=== PATIENT | male | born 1950 | race Caucasian/White ===

== ENCOUNTER 2017-08-31 07:41 | Day surgery (SDC) | payer OTHER ==
[2017-08-31] MEDS ORDERED: BENZOCAINE UNIT DOSE SPRAY HURRICAINE MM ONE (07:42)
[2017-08-31] MEDS ORDERED: ATROPINE SULFATE 1 MG/10 ML SYR IVP ONE (07:42)
[2017-08-31] MEDS ORDERED: MIDAZOLAM 2 MG/2 ML VIAL IVP ONE (07:42)
[2017-08-31] MEDS ORDERED: NS 500 ML IV ONE (07:42)
[2017-08-31] MEDS ORDERED: fentaNYL 100 MCG/2 ML INJ IVP ONE (07:42)
--- NOTE | 2017-08-31 08:01 | CPEKG ---
Heart Rate: 104 RR Interval: 577 QRSD Interval: 118 QT Interval: 388 QTC Interval: 511 QRS [place]: 35 T Wave Johnston: 113 EKG Severity - ABNORMAL ECG - EKG Impression: ATRIAL FIBRILLATION, V-RATE 83-121 EKG Impression: NONSPECIFIC INTRAVENTRICULAR CONDUCTION DELAY EKG Impression: LEFT VENTRICULAR HYPERTROPHY Electronically Signed By: Elias Villa 03-Sep-2017 13:55:42
--- NOTE | 2017-08-31 08:17 | PDANEPAE ---
ANE Past Medical History - Pulmonary History Hx Sleep Apnea: Yes ANE Review of Systems Review of Systems: ANE Patient History - Allergies Allergies/Adverse Reactions: No Known Allergies Allergy (Verified 07/19/13 08:01) - Home Medications Home Medications: Avapro 150 mg PO DAILY 05/12/16 [Last Taken 05/11/16 13:00] Eliquis 5 mg PO BID 05/12/16 [Last Taken Unknown] Nebivolol HCl [Bystolic] 10 mg PO DAILY 05/12/16 [Last Taken 05/11/16 12:00] - Smoking Hx Smoking Status: Former smoker ANE Labs/Vital Signs - Vital Signs Height: 173 cm Weight: 93 kg ANE Physical Exam - Airway Neck exam: increased neck circumference Mallampati Score: Class 3 Mouth exam: dentures - Pulmonary Pulmonary: reduced air movement - Cardiovascular Cardiovascular: irregularly irregular - ASA Status ASA Status: III ANE Anesthesia Plan Total IV Anesthesia: Yes
[2017-08-31 08:32] LABS: INR 1.2 (0.83-1.16); PROTIME(PATIENT) 15.2 SEC (12.0-15.0)
[2017-08-31 08:33] LABS: APTT 33.5 SEC (23.0-38.0)
[2017-08-31] MEDS ORDERED: PROPOFOL/EMULSION 500 MG/50 ML BOTTLE IV ONE (08:33)
[2017-08-31] MEDS ORDERED: LIDOCAINE 1% 5 ML SDV ONE (08:33)
[2017-08-31 08:42] LABS: ANION GAP 11 mEq/L (8-16); CALCIUM 9.2 mg/dL (8.5-10.4); CARBON DIOXIDE 23 mEq/l (22-31); CHLORIDE 103 mEq/L (97-110); CREATININE 0.8 mg/dL (0.7-1.3); GLOMERULAR FILTRATION RATE > 60; GLUCOSE 164 mg/dL (70-100); MAGNESIUM 1.9 mg/dL (1.6-2.3); POTASSIUM 4.7 mEq/L (3.5-5.2); SODIUM 137 mEq/L (134-144)
--- NOTE | 2017-08-31 08:59 | PDGENHP ---
History & Physical Chief Complaint: AF and CMP History of Present Illness: 67 yo M with AF and past attempt at DAVID guided DCCV x 2, but concern about DREW thrombus. Also moderate and CMP with LVEF 35%. Has been anticoagulated with Eliquis and now presents for elective DAVID guided DCCV. Pertinent Past, Social, Family History: reviewed from outpatient chart Relevant Physical Exam: NAD. Irreg, irreg. II/ JOHNNY base. Lungs CTAB Cardiorespiratory Assessment: stable
[2017-08-31] MEDS ORDERED: PERFLUTREN LIPID MICROSPHERES 1.1 MG/ML VIAL IV ONE (09:00)
--- NOTE | 2017-08-31 09:49 | PDTEE1 ---
DAVID Cardioversion Procedure Procedure: electrical cardioversion, transesophageal echo Indications: atrial fibrillation, cardiomyopathy Consent: signed and in chart Anticoagulation: eliquis Procedural Details: Pads were placed in anterior-posterior position. DAVID probe was advanced and standard images obtained. There is no evidence of left atrial or left atrial appendage thrombus. Sedation provided by Dr. Carcamo. Glidescope used for improved visualization. Definity used to clarify that there was no thrombus in the DREW Synchronized cardioversion attempt #1: 200J Results: normal sinus rhythm Conclusions: successful DAVID cardioversion
--- NOTE | 2017-08-31 09:57 | CPEKG ---
Heart Rate: 60 RR Interval: 1000 P-R Interval: 172 QRSD Interval: 114 QT Interval: 436 QTC Interval: 436 P [place]: 54 QRS [place]: 34 T Wave [place]: 100 EKG Severity - ABNORMAL ECG - EKG Impression: SINUS RHYTHM EKG Impression: NONSPECIFIC INTRAVENTRICULAR CONDUCTION DELAY EKG Impression: PROBABLE LVH WITH SECONDARY REPOL ABNRM EKG Impression: SINUS RHYTHM HAS REPLACED ATRIAL FIBRILLATION NOTED ON PRIOR ECG Electronically Signed By: Elais Villa 03-Sep-2017 13:56:06
--- NOTE | 2017-08-31 13:37 | ECHO ---
[email or web address] [place] [id number] Main: [phone] Fax: Transesophageal Echocardiography Name: ASHLEE LYNN MR#: [id number] Study Date: 08/31/2017 Study Time: 08:41 AM Date of : 1950 Age: 67 year(s) Height: ( ) Weight: ( ) BSA: Gender: Male Examination: DAVID Indication: Atrial Fibrillation Image Quality: Contrast: Requested by: Padmini Harden Heart Rate: Rhythm: BP: / Procedure Staff Lime Mixer: Reading Physician: Padmini Harden Requesting Provider: DAVID Exam Details Conclusions: Moderately reduced systolic LV function. The ejection fraction is visually estimated to be 30 %. An agitated saline study was performed and was negative for intracardiac shunting. Spontaneous contrast in the left atrium. No thrombus in the left atrial appendage confirmed by using Definity.. Moderate mitral valve regurgitation is present. The aortic valve is tri-leaflet. Mild to moderate aortic valve regurgitation. Moderate calcific aortic valve stenosis. RICHARD based on planimetry is 1 cm squared Mild to moderate tricuspid valve regurgitation. The pulmonary artery pressure is normal. Proceeded with DCCV Measurements: Chambers Valvular Assessment AV/MV Valvular Assessment TV/PV Normal Normal Normal Name Value Range Name Value Range Name Value Range Visual EF: 30 % TR Vmax: 2.62 mm/s ( - ) TR PGmax: 27 mmHg ( - ) syst. PAP: 37 mmHg ( - ) Additional Measurements: Valvular Assessment TV/PV Patient: ASHLEE LYNN Study Date: 08/31/2017 Page 1 of 2 08:41 AM Name Value CVP (est.): 10 mmHg Findings: Left Ventricle: Moderately reduced systolic LV function. The ejection fraction is visually estimated to be 30 %. Left Atrium: An agitated saline study was performed and was negative for intracardiac shunting. Spontaneous contrast in the left atrium. No thrombus in the left atrial appendage confirmed by using Definity.. Left Atrial Appendage: Spontaneous contrast is present in the left atrial appendage. Mitral Valve: Moderate mitral valve regurgitation is present. Aortic Valve: The aortic valve is tri-leaflet. Mild to moderate aortic valve regurgitation. Moderate calcific aortic valve stenosis. Tricuspid Valve: Mild to moderate tricuspid valve regurgitation. The pulmonary artery pressure is normal. l1n (No Signature Object) Patient: ASHLEE LYNN Study Date: 08/31/2017 Page 2 of 2 08:41 AM [id number]
== END 2017-08-31 11:09 | disposition home or self-care (01) ==
LOC: FCATH 07:41
PROVIDERS: ATTEND Internal Medicine Cardiovascular Disease
DX: I48.91 Unspecified atrial fibrillation (principal); I42.9 Cardiomyopathy, unspecified; G47.30 Sleep apnea, unspecified
CPT/HCPCS: 92960; 93005; C8927; J0461; J2704; J3010; Q9957

== ENCOUNTER 2017-10-13 08:22 | Outpatient (CLI) | payer OTHER ==
[2017-10-13] MEDS ORDERED: DOBUTamine/DEXTROSE 250 ML IV ONE (09:00)
--- NOTE | 2017-10-13 10:49 | PDHPUP ---
History & Physical Update H&P update statement: This history and physical update is based on an assessment of the patient which was completed after admission or registration (within 24 hours), but prior to the surgery/procedure. H&P update: H&P reviewed & patient examined, no change in patient's condition since H&P completed
--- NOTE | 2017-10-13 14:40 | ECHO ---
[email or web address] [place] [id number] Main: [phone] Fax: Stress Echocardiogram Name: ASHLEE LYNN MR#: [id number] Study Date: 10/13/2017 Study Time: 09:51 AM Date of : 1950 Age: 67 year(s) Height: 172.7 cm (68 in.) Weight: 95.26 kg (210 lb.) BSA: 2.09 m2 Gender: Male Examination: DSE Indication: Eval aortic stenosis/EF during dobutamine infusion Image Quality: Contrast: Requested by: Padmini Harden Heart Rate: Rhythm: BP: / Procedure Staff Knitting Machine Operator: Shruti Abarca Physician: Padmini Harden Requesting Provider: Enmanuel Whitney Conclusions: Dobutamine stress echo done to assess for low flow in a patient with cardiomyopathy. At rest the mean transvalvular gradient was 28 mmHg and the calculated RICHARD was 0.77cm2. LVEF 30%. At 20 mcg /kg/minute of dobutamine mean gradient increased to 46 mmHg; calculated RICHARD 0.56 cm2. LVEF improved slightly to 35-50%. These findings are consistent with LV contractile reserve and true severe . Findings: Stress Echo Findings: Stress Echo Impression: Resting AV gradients - AV max PG is 42mmHG. AV mean PG is 28mmHG AV gradients 20MCG - AV max PG is 67mmHG. AV mean PG is 46mmHG. Mitral Valve: Tricuspid Valve: (No Signature Object) Patient: ASHLEE LYNN Study Date: 10/13/2017 Page 1 of 1 09:51 AM [id number]
== END 2017-10-13 12:22 | disposition home or self-care (01) ==
LOC: FCATH 08:22
PROVIDERS: ATTEND Internal Medicine Cardiovascular Disease
DX: I35.0 Nonrheumatic aortic (valve) stenosis (principal); I48.91 Unspecified atrial fibrillation; I10 Essential (primary) hypertension; Z79.01 Long term (current) use of anticoagulants; Z87.891 Personal history of nicotine dependence
CPT/HCPCS: J1250

== ENCOUNTER 2017-11-25 09:58 | Inpatient (IN) | payer MEDICARE, OTHER ==
[2017-11-25] MEDS ORDERED: DIAZEPAM 5 MG TAB PO ONE (10:04)
[2017-11-25] MEDS ORDERED: NS 1,000 ML IV ONE (10:04)
[2017-11-25] MEDS ORDERED: ASPIRIN EC 325 MG TAB PO ONE (10:04)
[2017-11-25] MEDS ORDERED: diphenhydrAMINE 25 MG CAP PO ONE ×2 (10:04→10:40)
[2017-11-25] MEDS ORDERED: FAMOTIDINE 20 MG TAB PO ONE (10:04)
[2017-11-25] MEDS ORDERED: DIAZEPAM 5 MG TAB ONE (10:40)
[2017-11-25] MEDS ORDERED: FAMOTIDINE 20 MG TAB ONE (10:40)
[2017-11-25 10:52] LABS: PLATELET COUNT 242 10^3/uL (150-400)
[2017-11-25 11:03] LABS: INR 1.07 (0.83-1.16); PROTIME(PATIENT) 14.1 SEC (12.0-15.0)
[2017-11-25] MEDS ORDERED: LIDOCAINE 1% 300 MG/30 ML SDV ONE (12:51)
[2017-11-25] MEDS ORDERED: fentaNYL 100 MCG/2 ML INJ ONE (12:52)
[2017-11-25] MEDS ORDERED: MIDAZOLAM 2 MG/2 ML VIAL ONE ×2 (12:52→13:37)
[2017-11-25] MEDS ORDERED: IOPAMIDOL (ISOVUE-370) 150 ML BTL IV ONE (12:52)
--- NOTE | 2017-11-25 12:57 | PDPROPOC ---
Sedation Plan of Care Sedation Plan of Care: vital signs stable, mental status noted, patient educated of risks, benefits, alternatives, patient can tolerate sedation ASA Classification: ASA 3 Planned drugs: fentanyl, midazolam, other (etomidate) Mallampati Score: Class 3 Mallampati Reference Image: Patient passed 3-3-2 rule?: Yes
--- NOTE | 2017-11-25 12:58 | PDHPUP ---
History & Physical Update H&P update statement: This history and physical update is based on an assessment of the patient which was completed after admission or registration (within 24 hours), but prior to the surgery/procedure.
[2017-11-25] MEDS ORDERED: ETOMIDATE 40 MG/20 ML INJ ONE (13:59)
--- NOTE | 2017-11-25 14:03 | PDGENHP ---
History and Physical - Chief Complaint , MR, TR, LSPAF - History of Present Illness 67M admitted in advance of open heart surgery for risk stratification. Pt was referred to CT surgery last September by Dr. Kwaku Norman for consideration of Hartley-Maze 4 for LSPAF, and multi-valvular repair for moderate /MR/TR. Since last seen, pt states he continues to have SOB on exertion and is frequently aware of his irregular heart rhythm. He denies CP or LE edema. History Information - Allergies/Home Medication List Allergies/Adverse Reactions: No Known Allergies Allergy (Verified 11/02/17 12:14) Home Medications: Apixaban [Eliquis] 5 mg PO BID #0 05/12/16 [Last Taken 11/21/17] Irbesartan [Avapro 150 mg (*)] 150 mg PO DAILY #0 05/12/16 [Last Taken 11/24/17] Nebivolol HCl [Bystolic 5 mg (*)] 10 mg PO DAILY 11/18/17 [Last Taken 11/24/17] I have personally reviewed and updated: medical history, social history, surgical history - Past Medical History CHF, diabetes type 2, hypertension Additional medical history: as per HPI, NICM - Surgical History Reports: appendectomy, hernia repair (BL) Additional surgical history: cataract surgery - Social History Smoking Status: Former smoker Alcohol Use: Sober Drug Use: Cocaine (former) Review of Systems Review of Systems: ROS: 10pt was reviewed & negative except for what was stated in HPI & below Physical Exam Physical Exam: Constitutional: no apparent distress, appears nourished, not in pain Eyes: anicteric sclera Ears, Nose, Mouth, Throat: moist mucous membranes, hearing normal Cardiovascular: irregularly irregular Peripheral Pulses: 2+: dorsalis-pedis (R) (doppler as per RN), dorsalis-pedis (L ) (doppler as per RN) Respiratory: no respiratory distress Gastrointestinal: soft, non-tender abdomen Genitourinary: no bladder fullness Skin: warm, normal color Musculoskeletal: full muscle strength Neurologic: AAOx3, sensation intact bilaterally Psychiatric: interacting appropriately, not anxious, not encephalopathic, thought process linear Lab Data & Imaging Review 11/25/17 10:04 11/25/17 10:36 WBC 7.68 10^3/uL (3.80-9.50) 11/25/17 10:04 RBC 4.97 10^6/uL (4.40-6.38) 11/25/17 10:04 Hgb 15.5 g/dL (13.7-17.5) 11/25/17 10:04 Hct 44.0 % (40.0-51.0) 11/25/17 10:04 MCV 88.5 fL (81.5-99.8) 11/25/17 10:04 MCH 31.2 pg (27.9-34.1) 11/25/17 10:04 MCHC 35.2 g/dL (32.4-36.7) 11/25/17 10:04 RDW 12.9 % (11.5-15.2) 11/25/17 10:04 Plt Count 242 10^3/uL (150-400) 11/25/17 10:04 MPV 9.6 fL (8.7-11.7) 11/25/17 10:04 Neut % (Auto) 67.8 % (39.3-74.2) 11/25/17 10:04 Lymph % (Auto) 21.9 % (15.0-45.0) 11/25/17 10:04 Smyth % (Auto) 8.5 % (4.5-13.0) 11/25/17 10:04 Eos % (Auto) 0.7 % (0.6-7.6) 11/25/17 10:04 Baso % (Auto) 0.7 % (0.3-1.7) 11/25/17 10:04 Nucleat RBC Rel Count 0.0 % (0.0-0.2) 11/25/17 10:04 Absolute Neuts (auto) 5.22 10^3/uL (1.70-6.50) 11/25/17 10:04 Absolute Lymphs (auto) 1.68 10^3/uL (1.00-3.00) 11/25/17 10:04 Absolute Monos (auto) 0.65 10^3/uL (0.30-0.80) 11/25/17 10:04 Absolute Eos (auto) 0.05 10^3/uL (0.03-0.40) 11/25/17 10:04 Absolute Basos (auto) 0.05 10^3/uL (0.02-0.10) 11/25/17 10:04 Absolute Nucleated RBC 0.00 10^3/uL (0-0.01) 11/25/17 10:04 Immature Gran % 0.4 % (0.0-1.1) 11/25/17 10:04 Immature Gran # 0.03 10^3/uL (0.00-0.10) 11/25/17 10:04 PT 14.1 SEC (12.0-15.0) 11/25/17 10:36 INR 1.07 (0.83-1.16) 11/25/17 10:36 APTT 29.2 SEC (23.0-38.0) 11/25/17 10:36 Sodium 143 mEq/L (135-145) 11/25/17 10:36 Potassium 4.4 mEq/L (3.5-5.2) 11/25/17 10:36 Chloride 110 mEq/L (97-110) 11/25/17 10:36 Carbon Dioxide 18 mEq/l (22-31) L 11/25/17 10:36 Anion Gap 15 mEq/L (8-16) 11/25/17 10:36 BUN 17 mg/dL (7-23) 11/25/17 10:36 Creatinine 0.8 mg/dL (0.7-1.3) 11/25/17 10:36 Estimated GFR > 60 11/25/17 10:36 Glucose 141 mg/dL (70-100) H 11/25/17 10:36 Hemoglobin A1c 7.4 % (4.0-6.0) H 11/25/17 10:36 Estim Average Glucose 166 mg/dL (68-126) H 11/25/17 10:36 Calcium 9.0 mg/dL (8.5-10.4) 11/25/17 10:36 Magnesium 1.8 mg/dL (1.6-2.3) 11/25/17 10:36 Triglycerides 81 mg/dL (40-150) 11/25/17 10:36 Cholesterol 159 mg/dL (140-220) 11/25/17 10:36 Cholesterol Risk Factr 1.2 (0.2-1.0) H 11/25/17 10:36 LDL Cholesterol, Calc 112 mg/dL (80-100) H 11/25/17 10:36 LDL Risk Factor 1.0 (0.2-1.0) 11/25/17 10:36 VLDL Cholesterol 16 mg/dL (8-25) 11/25/17 10:36 Non-HDL Cholesterol 128 mg/dL (90-129) 11/25/17 10:36 HDL Cholesterol 31 mg/dL (40-65) L 11/25/17 10:36 LDL/HDL Ratio 3.61 RATIO (1.00-3.64) 11/25/17 10:36 Cholesterol/HDL Ratio 5.13 RATIO (1.00-4.97) H 11/25/17 10:36 Patient ABO/Rh O NEGATIVE 11/25/17 10:36 Antibody Screen NEGATIVE 11/25/17 10:36 Imaging Review: 06/29/17 TTE: - LV with moderate dilationm, RV with mild dilation - EF 30% - Mod , mod MR, mild TR 08/31/17 DAVID: - EF 30% - Mod MR//TR 10/13/17 Dobutamine stress ECHO: - Mean gradient across aortic valve increased to 46 mmHg from 28 mmHg, aortic valve area decreased to .56 cm2 from .77 cm2 while EF increased to 50% from 35% . 11/25/16 LHC/RHX: - No significant flow limiting obstructions - Normal PA pressures Visualized and Interpreted EKG results: Yes EKG Interpretation: Positive for: LVH, normal sinsus rhythm Assessment & Plan Assessment: 67M with LSPAF and MR//TR Plan: Hartley-Maze 4 and multivalvular surgery on 11/26/[address] Whitney. Pre-op orders entered. Consents to be obtained in morning.
--- NOTE | 2017-11-25 14:04 | PDDXCAT ---
Diagnostic Cath Note - . Date: 11/25/17 Oil Field Tester: Karen Indication: other (Diagnostic cath for planned valve surgery tomorrow. ) - Procedure Access: right groin Procedure: left heart catheterization, right heart catheterization - Materials Left Heart Cath size: 6F Left Heart Cath materials: standard multipack (JL4, JR4, pigtail) Right Heart Cath size: 7F Right Heart Cath materials: PWP catheter - Findings-Left Heart Catheterization LM: The LM is 4mm in size. It trifurcates in an LAD, ramus and circumflex system. ABDI III flow. There was no siginifcant flow limiting obstruction seen. LAD: It is 3mm in size. ABDI III flow. There was no significant flow limiting obstruction seen. LCX: It is 2.5mm in size. RCA: The RCA is dominant and gives rise to the PDA. It is 3mm in size. There was no significant flow limiting obstruction seen. - Findings-Right Heart Catheterization RA: Pressure: 14/14 RV: Pressure: 37/9 End diastolic pressure 13mmHg. PA: Pressure: 37/23. Saturation: 73%. PAOP: PCW pressure: 19mmHg AO: Saturation: 95.1% CO: 5.5 L/min CI: 2.6 L/min/m2 Complications: None. Estimated blood loss: <50ml Closure method: manual pressure Assessment: There is no significant flow limiting obstruction identified. The patient's pulmonary pressures are surprisingly low with a systolic pulmonary pressure of 37mmHg. The patient has mildly elevated filling pressures with pulmonary capillary wedge pressure of 19mmHg. Plan: The patient is prepped for valve surgery tomorrow. He will proceed with the elected surgery. There was no significant flow limiting disease identified. Intervention: None.
[2017-11-25] MEDS ORDERED: ATROPINE SULFATE 1 MG/10 ML SYR ONE (14:45)
[2017-11-25] MEDS ORDERED: ATROPINE SULFATE 1 MG/10 ML SYR IVP PRN (14:53)
[2017-11-25] MEDS ORDERED: HYDROCODONE/APAP 5/325 TAB PO PRN (14:53)
[2017-11-25] MEDS ORDERED: ONDANSETRON 4 MG/2 ML VIAL IVP PRN (14:53)
[2017-11-25] MEDS ORDERED: OXYCODONE/APAP 5/325 TAB PO PRN (14:53)
[2017-11-25] MEDS ORDERED: NITROGLYCERIN 0.4 MG BTL SL PRN (14:53)
--- NOTE | 2017-11-25 15:23 | CPEKG ---
Heart Rate: 100 RR Interval: 600 QRSD Interval: 122 QT Interval: 368 QTC Interval: 475 QRS [place]: 37 T Wave [place]: 83 EKG Severity - ABNORMAL ECG - EKG Impression: ATRIAL FIBRILLATION, V-RATE 74-138 EKG Impression: VENTRICULAR PREMATURE COMPLEX EKG Impression: IVCD EKG Impression: LVH VOLTAGE Electronically Signed By: Wellington Lyon 25-Nov-2017 16:21:17
[2017-11-25] MEDS ORDERED: CHLORHEXIDINE GLUC HIBICLENS 118 ML BTL TP SCH (21:00)
[2017-11-26] MEDS ORDERED: niCARdipine/NACL 200 ML IV SCH (06:00)
[2017-11-26] MEDS ORDERED: MUPIROCIN 2% 22 GM OINT NS ONE (06:00)
[2017-11-26] MEDS ORDERED: INSULIN REGULAR HUMAN 100 UNIT in NS 100 ML IV ONE (06:00)
[2017-11-26] MEDS ORDERED: MANNITOL 25% 12.5 GM/50 ML VIAL IVP ONE (06:00)
[2017-11-26] MEDS ORDERED: CITRATE DEXTROSE SOLN 500 ML BAG MISC ONE (06:00)
[2017-11-26] MEDS ORDERED: NOREPINEPHRINE BITARTRATE 16 MG in NS 250 ML IV ONE (06:00)
[2017-11-26] MEDS ORDERED: PHENYLEPHRINE HCL 50 MG in NS 250 ML IV ONE (06:00)
[2017-11-26] MEDS ORDERED: SODIUM BICARBONATE 20 MEQ, LIDOCAINE 1% 10 ML in NORMOSOL-R 1,000 ML MISC ONE (06:00)
[2017-11-26] MEDS ORDERED: TRANEXAMIC ACID 1,000 MG in NS 100 ML IV ONE (06:00)
[2017-11-26] MEDS ORDERED: ceFAZolin 2 GM/SWFI 2 GM/20 ML SYR IVP ONE (06:00)
[2017-11-26] MEDS ORDERED: CALCIUM CHLORIDE 1 GM/10 ML INJ ONE (06:22)
[2017-11-26] MEDS ORDERED: ALBUMIN 5% 250 ML BOTTLE IV ONE (06:22)
[2017-11-26] MEDS ORDERED: PROTAMINE SULFATE 50 MG/5 ML VIAL IVP ONE (06:22)
[2017-11-26] MEDS ORDERED: MILRINONE/DEXTROSE/100 ML BAG IV ONE (06:22)
[2017-11-26] MEDS ORDERED: DOPamine/DEXTROSE/250 ML BAG IV ONE (06:23)
[2017-11-26] MEDS ORDERED: CITRATE DEXTROSE SOLN 500 ML BAG ONE (06:23)
[2017-11-26] MEDS ORDERED: NA BICARBONATE 50 MEQ/50 ML VIAL ONE (06:23)
[2017-11-26] MEDS ORDERED: ADENOSINE 6 MG/2 ML VIAL ONE (06:23)
[2017-11-26] MEDS ORDERED: niCARdipine/NACL/200 ML BAG IV ONE (06:23)
[2017-11-26] MEDS ORDERED: HEPARIN 10,000 UNIT/10 ML MDV (1,000 UNIT/ML) ONE (06:23)
[2017-11-26] MEDS ORDERED: AMIODARONE HCL 150 MG/3 ML VIAL ONE (06:23)
[2017-11-26] MEDS ORDERED: LIDOCAINE 2% 100 MG/5 ML SYR ONE (06:23)
[2017-11-26] MEDS ORDERED: MAGNESIUM SULFATE 1 GM/2 ML VIAL ONE (06:23)
[2017-11-26] MEDS ORDERED: ceFAZolin 1 GM VIAL ONE (06:24)
[2017-11-26] MEDS ORDERED: methylPREDNISolone SOD SUCC 1 GM/8 ML VIAL ONE (06:24)
[2017-11-26] MEDS ORDERED: MIDAZOLAM 2 MG/2 ML VIAL IVP ONE (08:01)
--- NOTE | 2017-11-26 08:01 | PDANEPAE ---
ANE History of Present Illness 67 yo for avr/mvr/maze ef 30%, AI, , MR afib tabitha ANE Past Medical History - Cardiovascular History Hx Hypertension: Yes Hx Arrhythmias: Yes Hx Chest Pain: No Hx Coronary Artery / Peripheral Vascular Disease: Yes Hx CHF / Valvular Disease: Yes Hx Palpitations: Yes Cardiovascular History Comment: tired,SOB - Pulmonary History Hx COPD: Yes Hx Asthma/Reactive Airway Disease: No Hx Recent Upper Respiratory Infection: No Hx Oxygen in Use at Home: No Hx Sleep Apnea: Yes Sleep Apnea Screening Result - Last Documented: Positive - Neurologic History Hx Cerebrovascular Accident: No Hx Seizures: No Hx Dementia: No - Endocrine History Hx Diabetes: No - Renal History Hx Renal Disorders: No - Liver History Hx Hepatic Disorders: No - Neurological & Psychiatric Hx Hx Neurological and Psychiatric Disorders: No - Cancer History Hx Cancer: No - Congenital Disorder History Hx Congenital Disorders: Yes Congenital History Comment: high blood pressure - GI History Hx Gastrointestinal Disorders: Yes Gastrointestinal History Comment: takes fiber daily. has hemmaroids - Other Health History Other Health History: redened area to right ankle. cataract surgery both eyes - Chronic Pain History Chronic Pain: No - Surgical History Prior Surgeries: heart cath. cardioversion x3 ANE Review of Systems Review of Systems: - Exercise capacity METS (RN): 3 METS ANE Patient History - Allergies Allergies/Adverse Reactions: No Known Allergies Allergy (Verified 11/02/17 12:14) - Home Medications Home medications: home medication list seen and reviewed Home Medications: Apixaban [Eliquis] 5 mg PO BID #0 05/12/16 [Last Taken 11/21/17] Irbesartan [Avapro 150 mg (*)] 150 mg PO DAILY #0 05/12/16 [Last Taken 11/24/17] Nebivolol HCl [Bystolic 5 mg (*)] 10 mg PO DAILY 11/18/17 [Last Taken 11/24/17] - NPO status NPO Status: no food or drink >8 hours NPO Since - Liquids (Date): 11/26/17 NPO Since - Liquids (Time): 00:00 NPO Since - Solids (Date): 11/26/17 NPO Since - Solids (Time): 00:00 - Anes Hx Anes Hx: no prior problems - Smoking Hx Smoking Status: Former smoker - Alcohol Use Alcohol Use: Sober - Family Anes Hx Family Hx Anesthesia Complications: none ANE Labs/Vital Signs - Labs Result Diagrams: 11/25/17 10:04 11/25/17 10:36 - Vital Signs Blood Pressure: 111/88 Heart Rate: 111 Respiratory Rate: 19 O2 Sat (%): 95 Height: 5 ft 8 in Weight: 91.5 kg ANE Physical Exam - Airway Neck exam: FROM Mallampati Score: Class 1 Mouth exam: dentures - Pulmonary Pulmonary: no respiratory distress - Cardiovascular Cardiovascular: regular rate and rhythym - ASA Status ASA Status: IV ANE Anesthesia Plan Anesthesia Plan: general endotracheal anesthesia Lines/Monitors: arterial line, central line
[2017-11-26] MEDS ORDERED: fentaNYL 250 MCG/5 ML INJ ONE (08:09)
[2017-11-26] MEDS ORDERED: REMIFENTANIL HCL 1 MG VIAL ONE (08:09)
[2017-11-26] MEDS ORDERED: PROPOFOL/EMULSION 500 MG/50 ML BOTTLE IV ONE ×2 (08:09→12:01)
[2017-11-26] MEDS ORDERED: MUPIROCIN 2% 22 GM OINT ONE (08:10)
[2017-11-26] MEDS ORDERED: ROCURONIUM 100 MG/10 ML VIAL ONE (08:12)
[2017-11-26] MEDS ORDERED: IRBESARTAN 150 MG TAB PO SCH (09:00)
[2017-11-26] MEDS ORDERED: NEBIVOLOL HCL 5 MG TAB PO SCH (09:00)
[2017-11-26] MEDS ORDERED: ROCURONIUM 50 MG/5 ML VIAL ONE (10:43)
[2017-11-26] MEDS ORDERED: LR 1,000 ML IV ONE (10:49)
--- NOTE | 2017-11-26 10:49 | ASMTCASEMG ---
Living Arrangements What is your living Answers: With Spouse arrangement? Who do you live with? Type Of Residence What kind of residence do Answers: House you live in? Discharge Plan Comments Coordination Status Comments Notes: CM spoke w/ EJ Hui regarding d/c POC. Pt is a 67 y/o man admitted for MR, , TR, and AFIB. Pt is having an open heart today. Needs are TBD at this time. CM to follow post surgery. Plan: TBD Date Signed: 11/26/2017 10:48 AM Electronically Signed By:ADAM Angela
[2017-11-26] MEDS ORDERED: MINERAL OIL 10 ML VIAL ONE ×2 (10:53→11:38)
[2017-11-26] MEDS ORDERED: HYDROmorphONE/DILAUDID 2 MG/ML INJ ONE (12:00)
[2017-11-26] MEDS ORDERED: SUGAMMADEX SODIUM 200 MG/2 ML VIAL IVP ONE (13:20)
[2017-11-26] MEDS ORDERED: ONDANSETRON 4 MG/2 ML VIAL ONE (13:20)
[2017-11-26] MEDS ORDERED: MEPERIDINE 25 MG/ML SYR IVP PRN (13:35)
[2017-11-26] MEDS ORDERED: METOCLOPRAMIDE 10 MG/2 ML VIAL IVP PRN (13:35)
[2017-11-26] MEDS ORDERED: MAGNESIUM SULF 2 GM/WATER 50 ML IV ONE (13:35)
[2017-11-26] MEDS ORDERED: POLYETHYLENE GLYCOL 3350 17 GM PKT PO PRN (13:35)
[2017-11-26] MEDS ORDERED: fentaNYL 100 MCG/2 ML INJ IVP PRN (13:35)
[2017-11-26] MEDS ORDERED: ACETAMINOPHEN 325 MG TAB PO PRN (13:35)
[2017-11-26] MEDS ORDERED: D50W 25 GM/50 ML SYR IVP PRN (13:35)
[2017-11-26] MEDS ORDERED: BISACODYL 10 MG SUPP PR PRN (13:35)
[2017-11-26] MEDS ORDERED: POTASSIUM Cl (KCl) 50 ML IV PRN (13:35)
[2017-11-26] MEDS ORDERED: PANTOPRAZOLE SODIUM 40 MG VIAL IVP ONE (13:35)
[2017-11-26] MEDS ORDERED: ONDANSETRON DISINTEGRATING 4 MG TAB PO PRN (13:35)
[2017-11-26] MEDS ORDERED: ONDANSETRON 4 MG/2 ML VIAL IVP PRN (13:35)
[2017-11-26] MEDS ORDERED: CEPACOL LOZENGE PO PRN (13:35)
[2017-11-26] MEDS ORDERED: MAGNESIUM HYDROXIDE 30 ML UDCUP PO PRN (13:35)
[2017-11-26] MEDS ORDERED: ACETAMINOPHEN 650 MG SUPP PR PRN (13:35)
[2017-11-26] MEDS ORDERED: SODIUM CL NASAL 45 ML BTL EACHNARE PRN (13:35)
[2017-11-26] MEDS ORDERED: LACTULOSE 20 GM/30 ML UDCUP PO PRN (13:35)
[2017-11-26] MEDS ORDERED: NS 1,000 ML IV SCH (13:45)
[2017-11-26] MEDS ORDERED: fentaNYL 50 MCG PATCH TD ONE (13:45)
[2017-11-26] MEDS ORDERED: INSULIN REGULAR HUMAN 100 UNIT in NS 100 ML IV SCH (14:00)
--- NOTE | 2017-11-26 14:02 | POSTANESTH ---
Post Anesthetic Evaluation Cardiovascular Status: Normal, Stable Respiratory Status: Other, See Comment Level of Consciousness/Mental Status: Unconscious Pain Control: Adequate, Prn Tx Ordered Nausea/Vomiting Control: Adequate, Prn Tx Ordered Complications Possibly Related to Anesthesia: None Noted (on vent sedated)
--- NOTE | 2017-11-26 14:49 | GOP ---
[f rep st] OPERATIVE REPORT DATE OF OPERATION: 11/26/2017 SURGEON: Enmanuel Whitney DO INSPECTOR SUBASSEMBLY: Victoria Torres, PAC. ANESTHESIA: Rogerio Lanza MD PREOPERATIVE DIAGNOSIS: Aortic stenosis, aortic insufficiency, moderate mitral insufficiency, dilate d cardiomyopathy and long-standing persistent atrial fibrillation. POSTOPERATIVE DIAGNOSIS: Aortic stenosis, aortic insufficiency, moderate mitral insufficiency, dilat ed cardiomyopathy and long-standing persistent atrial fibrillation. PROCEDURE PERFORMED: 1. Aortic valve replacement with a #23 Magna bioprosthesis. 2. Patch aortoplasty with bovine pericardium. 3. Mitral valve repair with a #30 Physio annuloplasty ring. 4. Hartley Maze-IV procedure with testing, utilizing radiofrequency and cryoablation. FINDINGS: DESCRIPTION OF PROCEDURE: Patient was consented for surgery and brought to the operating room. On i nduction, he became hemodynamically unstable and went into rapid atrial fibrillation with marked hypo tension. He required boluses of inotropic support while he was prepped and draped in the sterile cla ssical manner. Emergent sternotomy was performed. Attempts at cardioversion were unsuccessful. He was able to maintain some blood pressure while we heparinized him and cannulated the ascending aorta with bicaval cannula. We then went on bypass and arrested the heart. We then cardioverted into sinu s rhythm and did exit and entrance block testing on both pulmonary veins, which were both positive fo r ongoing conduction. We then encircled both pulmonary veins with a clamp and performed multiple abl ations up to 10 until the duration of ablation was less than 10 seconds several times in a row on 3 d ifferent sites. We then tested both pulmonary veins, and confirmed exit and entrance block. I then arrested the heart with antegrade cardioplegia. We then excised the tip of the left atrial appendage and passed a radiofrequency clamp across the coumadin ridge into the left superior pulmonary vein. Multiple ablations were performed. A 45 mm AtriClip was placed across the base of the appendage. We then marked the terminus of the circumflex and right coronary arteries and the coronary sinus, and then opened the left atrium through the right superior pulmonary vein. I then performed cryoablatio n externally across the previously marked coronary sinus site for 3 minutes. We then connected it in ternally at the isthmus overlapping the external cryoablation into the mitral isthmus. We then perfo rmed roof and floor lesions with radiofrequency. We then evaluated the mitral valve. Exposure was d ifficult due to his deep chest and small left atrium. Annuloplasty sutures were placed, and a 30 rin g was sized and secured without difficulty with Cor-Knots. The left atrium was closed in a standard fashion. We then placed a vent across the mitral valve into the left ventricle. Rewarming was begun while an aortotomy was performed and aortic valve was excised. He had a rather s mall anulus and small aorta. For that reason, bovine pericardium was taken down to the anulus to sli ghtly enlarge it at that site. We placed a 23 mm Magna valve slightly angulated away from the anulus on the non-coronary side, bringing felt reinforced 4-0 Prolene's externally and internally along the noncoronary sinus, elevating the height of the sinus above the patient's normal sinus, in order to s ize for a 23 valve. Again, his anulus was quite small after debridement. We were unable to obviousl y patch down into the anterior leaf of the mitral valve; however, by enlarging the root, I felt that we could slightly angulate the aortic valve and have better hemodynamics. The valve was secured in p lace. We then continued the patch on across the aortotomy on both sides, slightly enlarging the root in order to facilitate the larger valve. Cross-clamp was then removed with suction on the ascending aortic vent and LV sump while spontaneous cardiac activity was noted to resume. We performed a right-sided Maze procedure with a vertical atri otomy, a free wall and superior and inferior caval radiofrequency ablation, and then cryoablation acr oss the tricuspid isthmus. The right atrium was closed in a 2-layer fashion. The patient was then a llowed to rewarm. We kept him in Trendelenburg and de-aired him with the LV sump and intermittent as piration through the apex, as well as ascending aorta, until no further air was identified. The sump was removed. He was weaned from bypass. The heparin was reversed with protamine. He remained in s inus rhythm. Four pacing wires were placed. He had normal right mitral regurgitation on echo and no stenosis. Aortic valve had good laminar flow without perivalvular leak. Cannula was removed and ov ersewn. Two mediastinal drains were placed. The thymic fat and pericardium were closed. Chest was closed in standard fashion. The patient was returned to ICU in stable condition. /[id number]/MODL
[2017-11-26] MEDS: ceFAZolin 2 GM/DEXTROSE 100 ML IV SCH ×2 (15:23→20:31)
[2017-11-26] MEDS: KETOROLAC 15 MG/1 ML SDV IVP SCH (18:41)
[2017-11-26] MEDS: CHLORHEXIDINE GLUCONATE 15 ML UDL PO SCH (19:24)
[2017-11-26] MEDS: ALBUMIN 5% 250 ML IV PRN ×3 (20:20→21:07)
[2017-11-26] MEDS: FAMOTIDINE 20 MG/NACL 50 ML IV SCH (20:30)
[2017-11-26] MEDS: MUPIROCIN 2% 22 GM OINT NS SCH (21:03)
[2017-11-27] MEDS: KETOROLAC 15 MG/1 ML SDV IVP SCH ×4 (00:09→18:24)
[2017-11-27 04:14] LABS: PLATELET COUNT 92 10^3/uL (150-400)
[2017-11-27 04:26] LABS: INR 1.26 (0.83-1.16)
[2017-11-27] MEDS: ceFAZolin 2 GM/DEXTROSE 100 ML IV SCH ×3 (05:27→21:13)
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
[2017-11-27] MEDS: HEPARIN 5,000 UNIT/0.5 ML SYR SC SCH ×3 (06:24→21:14)
[2017-11-27] MEDS: PANTOPRAZOLE SODIUM 40 MG TAB PO SCH (08:37)
[2017-11-27] MEDS: ASPIRIN 81 MG CHEWABLE TAB PO SCH (08:37)
[2017-11-27] MEDS: FAMOTIDINE 20 MG/NACL 50 ML IV SCH (08:37)
[2017-11-27] MEDS ORDERED: ASPIRIN 81 MG CHEWABLE TAB TUBE PRN (09:00)
[2017-11-27] MEDS: MUPIROCIN 2% 22 GM OINT NS SCH ×2 (09:00→20:10)
[2017-11-27] MEDS ORDERED: D50W 25 GM/50 ML SYR IVP PRN (09:40)
[2017-11-27] MEDS: CHLORHEXIDINE GLUCONATE 15 ML UDL PO SCH (11:45)
--- NOTE | 2017-11-27 12:18 | ASMTCMCOM ---
CM Note CM Note Notes: Patient had surgery yesterday. Awaiting therapy evals to determine D/C plan. CM will follow. Date Signed: 11/27/2017 12:17 PM Electronically Signed By:Adele Murray LCSW
[2017-11-27] MEDS: INSULIN REGULAR HUMAN 100 UNIT/ML UNIT SC SCH ×3 (12:40→20:10)
[2017-11-27] MEDS ORDERED: WARFARIN SODIUM 2.5 MG TAB PO ONE (16:15)
[2017-11-27] MEDS ORDERED: traMADol 50 MG TAB PO PRN (16:24)
[2017-11-28] MEDS: KETOROLAC 15 MG/1 ML SDV IVP SCH (00:04)
[2017-11-28 05:48] LABS: PLATELET COUNT 83 10^3/uL (150-400)
[2017-11-28] MEDS: HEPARIN 5,000 UNIT/0.5 ML SYR SC SCH ×3 (05:48→19:35)
[2017-11-28 06:18] LABS: INR 1.76 (0.83-1.16); PROTIME(PATIENT) 20.6 SEC (12.0-15.0)
[2017-11-28] MEDS: INSULIN REGULAR HUMAN 100 UNIT/ML UNIT SC SCH ×4 (08:02→22:07)
[2017-11-28] MEDS: SENNOSIDES/DOCUSATE SODIUM TAB PO SCH ×2 (08:41→22:06)
[2017-11-28] MEDS: PANTOPRAZOLE SODIUM 40 MG TAB PO SCH (08:41)
[2017-11-28] MEDS: ASPIRIN 81 MG CHEWABLE TAB PO SCH (08:41)
[2017-11-28] MEDS: MUPIROCIN 2% 22 GM OINT NS SCH (12:27)
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
[2017-11-28] MEDS ORDERED: WARFARIN SODIUM 2.5 MG TAB PO ONE (16:00)
[2017-11-28] MEDS: NEBIVOLOL HCL 5 MG TAB PO SCH (16:12)
--- NOTE | 2017-11-28 17:38 | GCON ---
[f rep st] CONSULTATION REFERRING PHYSICIAN: Enmanuel Whitney DO CONSULTING QUESTION: Diabetes management. HISTORY OF PRESENT ILLNESS: A 67-year-old male, who presents on 11/25/2017 for open heart surgery on 11/26/2017. Patient underwent aortic valve replacement, mitral valve repair patch, aortoplasty with bovine pericardium, and a Hartley Maze IV procedure. Patient is recovering well postoperatively in the i ntensive care unit, ambulating without difficulty, taking p.o. without any complications. Diagnosis of diabetes is new to this patient. He was under no outpatient management. Reports that his primary care provider had diagnosed him with prediabetes but he had not made any meaningful dietary or lifes tyle changes prior to this surgical evaluation and intervention. PAST MEDICAL HISTORY: 1. Prediabetes, now type 2 diabetes. 2. Hypertension. 3. Systolic heart failure. SOCIAL HISTORY: Negative for tobacco and alcohol; patient has quit both substances. Denies any illi cit drugs. FAMILY HISTORY: Positive for heart disease. REVIEW OF SYSTEMS: A 10-point review of systems is negative with the exception of that reported in t he HPI. PHYSICAL EXAMINATION: VITAL SIGNS: Blood pressure 134/81, heart rate 68, respiratory rate 19, 96% o n 2 L, 36.8. GENERAL: A healthy-appearing middle-aged male in no acute distress. HEENT: Notable f or moist mucous membranes. Eye exam is negative for any icterus. CARDIAC: Heart sounds are distant but regular. PULMONARY: Diminished breath sounds at bilateral bases. Crackles bilaterally. ABDOM EN: Positive bowel sounds. ABDOMEN: Soft and nontender. SKIN: Patient's sternotomy incision is h ealing well. No rashes are noted. MUSCULOSKELETAL: Trace bilateral lower extremity edema. NEUROLOG IC: Alert and oriented x3. PSYCHIATRIC: Pleasant and cooperative on interview and examination. DATA: White count 16 (up from 11), platelet count 83, hematocrit 34. Creatinine 0.9, blood glucose ranging 178-348. Hemoglobin A1c 7.4. Chest x-ray, which I personally reviewed and interpreted, show s sternotomy wires. AP film with cardiomegaly. No appreciable infiltrates or edema. ASSESSMENT AND PLAN: This is a 67-year-old male presenting for open-heart surgery. New diagnosis of type 2 diabetes. Patient's hemoglobin A1c is 7.4. He has not attempted lifestyle m odifications or used any medications in the outpatient setting. Based on the A1C, I think it most ap propriate to initiate first metformin 500 mg daily, up titrating by 500 mg weekly until a goal of a g b.i.d. Can initiate this in the hospital if we do not think additional imaging will be required. Dakota luu's renal function is normal. I think based on my discussion with the patient and the overstimu lation of this hospital stay, continuing sliding scale insulin while inpatient is appropriate but not necessary. DISPOSITION: Outpatient provider can continue to monitor patient's glycemic control in the setting o f his new dietary and lifestyle modifications, as well. I would expect we would have patient near go al control with those 2 modalities without requiring insulin initially. Thank you for the consultation. Will follow along. /[id number]/MODL
[2017-11-28] MEDS: guaiFENesin 600 MG TAB.ER PO SCH (18:44)
[2017-11-28] MEDS: metFORMIN HCL 500 MG TAB PO SCH (18:44)
[2017-11-28] MEDS: AMIODARONE HCL 200 MG TAB PO SCH (22:06)
[2017-11-28] MEDS: [UNRECOGNIZED DRUG - OTHER] PO PRN (22:17)
[2017-11-29] MEDS: guaiFENesin 600 MG TAB.ER PO SCH ×3 (00:06→21:05)
[2017-11-29] MEDS: MUPIROCIN 2% 22 GM OINT NS SCH (01:20)
[2017-11-29 03:52] LABS: PLATELET COUNT 99 10^3/uL (150-400)
[2017-11-29 04:02] LABS: INR 1.69 (0.83-1.16)
[2017-11-29] MEDS: HEPARIN 5,000 UNIT/0.5 ML SYR SC SCH ×3 (04:08→21:13)
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
[2017-11-29] MEDS: FUROSEMIDE 40 MG TAB PO SCH ×3 (08:30→14:45)
[2017-11-29] MEDS: PANTOPRAZOLE SODIUM 40 MG TAB PO SCH (08:49)
[2017-11-29] MEDS: INSULIN REGULAR HUMAN 100 UNIT/ML UNIT SC SCH ×4 (11:14→21:09)
[2017-11-29] MEDS: metFORMIN HCL 500 MG TAB PO SCH (11:14)
[2017-11-29] MEDS: POTASSIUM CL 20 MEQ TAB PO SCH ×2 (11:15→21:05)
[2017-11-29] MEDS: SENNOSIDES/DOCUSATE SODIUM TAB PO SCH (11:15)
[2017-11-29] MEDS: ASPIRIN 81 MG CHEWABLE TAB PO SCH (11:16)
[2017-11-29] MEDS: AMIODARONE HCL 200 MG TAB PO SCH ×2 (11:16→21:05)
[2017-11-29] MEDS: NEBIVOLOL HCL 5 MG TAB PO SCH (11:17)
--- NOTE | 2017-11-29 11:19 | ASMTCMCOM ---
CM Note CM Note Notes: Spoke with patient about discharge needs. He would benefit from SNF and is agreeable to going. He is also open to any facility - [place] but has daughters in [place]. I suggested a facility where they could visit easily. Referrals sent to the [facility] and [facility]. CM will follow. Date Signed: 11/29/2017 11:18 AM Electronically Signed By:Francine Waggoner RN
--- NOTE | 2017-11-29 15:28 | ECHO ---
[email or web address] [address] [address] Main: [phone] Fax: Transthoracic Echocardiogram Name: ASHLEE LYNN MR#: [id number] Study Date: 11/29/2017 Study Time: 01:35 PM Date of : 1950 Age: 67 year(s) Height: 172.7 cm (68 in.) Weight: 98.88 kg (218 lb.) BSA: 2.12 m2 Gender: Male Examination: Echo Indication: Image Quality: Technically Difficult Contrast: Requested by: Enmanuel Whitney BP: / Heart Rate: Rhythm: Indication: Procedure Staff Turbine Attendant: Jonna Darby Reading Physician: John Rendon Requesting Provider: Conclusions: Mild concentric LV hypertrophy. Moderately reduced systolic LV function. EF is 35 %. Mildly reduced RV function. Mild-moderate mitral annular calcification. There is no significant mitral valve regurgitation. Mild tricuspid regurgitation is present. Results dNicolewNicole Whitney Measurements: Chambers Valvular Assessment AV/MV Valvular Assessment TV/PV Normal Normal Normal Name Value Range Name Value Range Name Value Range IVSd (2D): 1.2 cm (0.6 cm-1.1 AV meanP mmHg ( - ) TR Vmax: 2.44 mm/s ( - ) cm) LVOT Vmax: 1.57 m/s (0.7 m/s-1.1 TR PGmax: 24 mmHg ( - ) LVDd (2D): 6.0 cm (4.2 cm-5.9 m/s) syst. PAP: 34 mmHg ( - ) cm) MV E Vmax: 1.56 m/s ( - ) PV Vmax: 1.13 m/s (0.6 m/s-0.9 LVDs (2D): 5.0 cm (2.1 cm-4 MV meanP mmHg ( - ) m/s) cm) PV PGmax: 5 mmHg ( - ) LVPWd (2D): 1.3 cm (0.6 cm-1 cm) LVEF (MOD4): 35 % (>=55 %) Continued Measurements: Valvular Assessment AV/MV Valvular Assessment TV/PV Name Value Name Value MV DecTime: 310 m/s CVP (est.): 10 mmHg MV VTI: 39.30 cm Patient: ASHLEE LYNN Study Date: 11/29/2017 Page 1 of 2 01:35 PM Findings: Left Ventricle: Left ventricle upper limits of normal. Mild concentric LV hypertrophy. Moderately reduced systolic LV function. EF is 35 %. Right Ventricle: Normal size right ventricle. Mildly reduced RV function. Left Atrium: The left atrium is normal in size. Right Atrium: The right atrium is normal in size. Mitral Valve: Mild-moderate mitral annular calcification. There is no significant mitral valve regurgitation. No mitral stenosis is present. Aortic Valve: Aortic valve is not well visualized. There is no aortic valve regurgitation. No aortic valve stenosis is present. Tricuspid Valve: The tricuspid valve is normal in appearance and function. Mild tricuspid regurgitation is present. Right Ventricular systolic pressure is measured at 34 mmHg. Pulmonic Valve: Pulmonary valve not well visualized. There is no pulmonic regurgitation seen. IVC: The IVC is not visualized. Pericardium: No pericardial effusion. There is pericardial fat. (No Signature Object) Patient: ASHLEE LYNN Study Date: 11/29/2017 Page 2 of 2 01:35 PM [id number]
[2017-11-29] MEDS ORDERED: WARFARIN SODIUM 2.5 MG TAB PO ONE (16:00)
--- NOTE | 2017-11-29 17:01 | HOSPPROG ---
Hospitalist Progress Note Assessment/Plan: # Type 2 diabetes - HBA1c 7.4 before any dietary/lifestyle modifications started metformin 500mg daily yesterday - without any GI complaints BS improved 152-275 - 14 units SSI dispensed in last 24 hours oxygen saturations 95% on 2L TELE (personally reviewed and interpreted) sinus 60's - cont metformin 500mg daily - cont SSI while inpatient # proph - heparin # diet - diabetic # dispo - per CT surgery I discussed the case with CT surgery- patient can discharge without sliding scale insulin - metformin should be up titrated 500 mg per week to goal of 1 g twice daily Subjective: denies CP Objective: Vital Signs Temp Pulse Resp BP Pulse Ox 36.4 C 64 14 140/81 H 95 11/29/17 16:00 11/29/17 16:00 11/29/17 16:00 11/29/17 16:00 11/29/17 16:00 Laboratory Results 11/29/17 03:35 11/29/17 03:35 11/28/17 11/29/17 11/30/17 05:59 05:59 05:59 Intake Total 2072 1350 Output Total 1070 1200 200 Balance 1002 150 -200 PT 20.0 SEC (12.0-15.0) H 11/29/17 03:35 INR 1.69 (0.83-1.16) H 11/29/17 03:35 - Physical Exam Constitutional: no apparent distress Eyes: anicteric sclera Ears, Nose, Mouth, Throat: moist mucous membranes Cardiovascular: regular rate and rhythym Respiratory: no respiratory distress, inspiratory crackles Gastrointestinal: normoactive bowel sounds Genitourinary: no bladder fullness Skin: warm Musculoskeletal: No asymmetric calves Neurologic: AAOx3 Psychiatric: interacting appropriately Lymph, Heme, Immunologic: no cervical LAD ICD10 Worksheet Patient Problems: Problems Problem Status Onset Acute blood loss anemia Acute S/P Maze operation for atrial fibrillation Acute ~11/26/17 S/P aortic valve replacement and aortoplasty Acute ~11/26/17 S/P mitral valve repair Acute ~11/26/17 Aortic valve stenosis with insufficiency Chronic Longstanding persistent atrial fibrillation Chronic Mitral valve regurgitation Chronic
[2017-11-29] MEDS ORDERED: SENNOSIDES/DOCUSATE SODIUM TAB PO PRN (21:00)
[2017-11-30] MEDS: HEPARIN 5,000 UNIT/0.5 ML SYR SC SCH ×3 (05:00→21:21)
[2017-11-30 05:47] LABS: INR 1.86 (0.83-1.16); PROTIME(PATIENT) 21.5 SEC (12.0-15.0)
--- NOTE | 2017-11-30 07:26 | SOAPPROG ---
SOAP Progress Note Assessment/Plan: Assessment: POD #4 AVR #23 Magna bioprosthesis. Bovine pericardial patch aortoplasty. MV annuloplasty #30 Physio ring. Hartley-Maze 4 Sx severe - s/p tissue AVR with patch aortoplasty. Stable early postop course. Antithrombotic prophylaxis with Coumadin as per Maze. Moderate MR - Amenable to ring annuloplasty. Antithrombotic prophylaxis with Coumadin as per Maze. LSPAF - Post-op CM4 rhythm sinus. AF prophylaxis with amiodarone. Adjunctive BB compl by sig bradycardia. EP to see re need for PPM/benefit CRRT. Antithrombotic prophylaxis with Coumadin, INR goal 2-3, duration TBD as per Maze surveillance. 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 Actively diuresing moderate fluid overload with stable renal fx. Chest tubes out. Staggered intro of HF meds as appropriate. Acute expected blood loss anemia with thrombocytopenia - Stable. No blood/blood product transfusions. Platelet rebound noted. DM type 2 - Newly diagnosed by preop A1c of 7.4%. Transitioned from insulin gtt to SSI and OHA as directed by IM. Plan: Cont coumadin 2.5 mg daily. Stop SQ hep tomorrow if INR > 1.9. Cont lasix 40 mg BID. Relax bowel regimen. Dispo - Anticipate SNF in 1-2 days pending cards clearance. 11/30/17 07:30 Subjective: Doing ok. Improving appetite and mobility. Satisfactory analgesia. +BMs. Objective: Vital Signs Temp Pulse Resp BP Pulse Ox 36.6 C 62 16 113/78 96 11/30/17 04:00 11/30/17 04:00 11/30/17 04:00 11/30/17 04:00 11/30/17 04:00 Laboratory Results 11/30/17 05:20 11/30/17 05:20 11/29/17 11/30/17 12/01/17 05:59 05:59 05:59 Intake Total 1350 1375 Output Total 1200 2450 Balance 150 -1075 PT 21.5 SEC (12.0-15.0) H 11/30/17 05:20 INR 1.86 (0.83-1.16) H 11/30/17 05:20 Holding SR > 60. Min suppl O2 req. Improving fluid balance. +5 kg overall. WBC count normalizing. Physical Exam - Physical Exam General Appearance: alert, no apparent distress Respiratory: crackles (coarse, left base o/w CTA) Cardiac/Chest: regular rate, rhythm, other (Sternum grossly stable. Sternotomy and CT sites CDI) Abdomen: non-tender, soft Skin: warm/dry Extremities: swelling (1+ perimalleolar) ICD10 Worksheet Patient Problems: Problems Problem Status Onset Acute blood loss anemia Acute S/P Maze operation for atrial fibrillation Acute ~11/26/17 S/P aortic valve replacement and aortoplasty Acute ~11/26/17 S/P mitral valve repair Acute ~11/26/17 Aortic valve stenosis with insufficiency Chronic Longstanding persistent atrial fibrillation Chronic Mitral valve regurgitation Chronic
[2017-11-30] MEDS: INSULIN REGULAR HUMAN 100 UNIT/ML UNIT SC SCH ×4 (08:15→21:22)
[2017-11-30] MEDS: ASPIRIN 81 MG CHEWABLE TAB PO SCH (08:40)
[2017-11-30] MEDS: AMIODARONE HCL 200 MG TAB PO SCH (08:40)
[2017-11-30] MEDS: PANTOPRAZOLE SODIUM 40 MG TAB PO SCH (08:40)
[2017-11-30] MEDS: metFORMIN HCL 500 MG TAB PO SCH (08:41)
[2017-11-30] MEDS: guaiFENesin 600 MG TAB.ER PO SCH ×2 (08:41→21:22)
[2017-11-30] MEDS: FUROSEMIDE 40 MG TAB PO SCH ×2 (08:41→15:23)
[2017-11-30] MEDS: POTASSIUM CL 20 MEQ TAB PO SCH ×2 (08:41→21:21)
--- NOTE | 2017-11-30 12:00 | ASMTCMCOM ---
CM Note CM Note Notes: I spoke with patient's daughter Yuliet and asked her which SNF she would prefer for her father since was agreeable to anything. She selected [facility]. I notified [facility] and they have accepted patient. Anticipate discharge in 1-2 days. Date Signed: 11/30/2017 12:00 PM Electronically Signed By:Francine Waggoner RN
--- NOTE | 2017-11-30 12:20 | CPEKG ---
Heart Rate: 64 RR Interval: 938 P-R Interval: 220 QRSD Interval: 116 QT Interval: 436 QTC Interval: 450 P [place]: 109 QRS [place]: 55 T Wave [place]: 74 EKG Severity - ABNORMAL ECG - EKG Impression: SINUS RHYTHM EKG Impression: FIRST DEGREE AV BLOCK EKG Impression: NONSPECIFIC INTRAVENTRICULAR CONDUCTION DELAY Electronically Signed By: John Rendon 30-Nov-2017 12:53:12
--- NOTE | 2017-11-30 15:14 | PDCARPN ---
Cardiology Progress Note Assessment/Plan: Assessment: Longstanding persistent AFIB Nonischemic CMP sp AVR, MV repair, maze procedure Plan: 1. Decrease amiodarone for 1 month, if recurrent AFIB at 1 mo, continue for 3 mo and then stop 2. LifeVest upon discharge due to LVEF 35%. If LVEF does not improve in 3 mo, will place single chamber ICD. Does not meet criteria for BiV pacing. 11/30/17 15:38 Subjective: Asked to see pt by Dr. Whitney due to persistent low LVEF post valve surgery and for AFIB Reviewed/Discussed With: other (Dr. Whitney) Time Spent With Patient: 30 min Objective: Vital Signs (8 Hrs) Temp Pulse Resp BP Pulse Ox 11/30/17 11:43 64 18 135/65 H 97 11/30/17 08:08 36.6 C 61 16 133/78 H 96 Intake/Output (24 Hrs) 11/29/17 11/30/17 12/01/17 11:59 11:59 11:59 Intake Total 850 1375 Output Total 1400 2250 500 Balance -550 -875 -500 Intake: Oral (ml) 850 1375 Output: Urine (ml) 1400 2250 500 Toilet 1400 2250 500 Other: Weight 99.2 kg 96.8 kg Intake Quantity Yes Sufficient Number of Voids Toilet 1 1 2 Number of Stools Toilet 1 2 Result Diagrams: 11/30/17 05:20 11/30/17 05:20 EKG: NSR, QRS duration <120 ms Telemetry: NSR ICD10 Worksheet Patient Problems: Problems Problem Status Onset Mitral valve regurgitation Chronic Aortic valve stenosis with insufficiency Chronic Longstanding persistent atrial fibrillation Chronic Acute blood loss anemia Acute S/P Maze operation for atrial fibrillation Acute ~11/26/17 S/P mitral valve repair Acute ~11/26/17 S/P aortic valve replacement and aortoplasty Acute ~11/26/17
[2017-11-30] MEDS ORDERED: WARFARIN SODIUM 2.5 MG TAB PO ONE (16:00)
--- NOTE | 2017-11-30 17:29 | HOSPPROG ---
Hospitalist Progress Note Assessment/Plan: # Type 2 diabetes - HBA1c 7.4 before any dietary/lifestyle modifications started metformin 500mg daily 11/28/17 - without any GI complaints BS improved 115-250 - 2 units SSI dispensed in last 24 hours oxygen saturations 97% on 2L TELE (personally reviewed and interpreted) sinus 60's - cont metformin 500mg daily - cont SSI while inpatient # proph - heparin # diet - diabetic # dispo - per CT surgery I discussed the case with CT surgery- patient can discharge without sliding scale insulin - metformin should be up titrated 500 mg per week to goal of 1 g twice daily Subjective: denies cp Objective: Vital Signs Temp Pulse Resp BP Pulse Ox 36.6 C 70 18 132/74 H 95 11/30/17 08:08 11/30/17 16:30 11/30/17 16:30 11/30/17 16:30 11/30/17 16:30 Laboratory Results 11/30/17 05:20 11/30/17 05:20 11/29/17 11/30/17 12/01/17 05:59 05:59 05:59 Intake Total 1350 1375 125 Output Total 1200 2450 1250 Balance 150 -1075 -1125 PT 21.5 SEC (12.0-15.0) H 11/30/17 05:20 INR 1.86 (0.83-1.16) H 11/30/17 05:20 - Physical Exam Constitutional: no apparent distress Eyes: anicteric sclera Ears, Nose, Mouth, Throat: moist mucous membranes Cardiovascular: regular rate and rhythym Respiratory: no respiratory distress Gastrointestinal: normoactive bowel sounds Genitourinary: no bladder fullness Skin: warm Musculoskeletal: No asymmetric calves Neurologic: AAOx3 Psychiatric: interacting appropriately Lymph, Heme, Immunologic: no cervical LAD ICD10 Worksheet Patient Problems: Problems Problem Status Onset Acute blood loss anemia Acute S/P Maze operation for atrial fibrillation Acute ~11/26/17 S/P aortic valve replacement and aortoplasty Acute ~11/26/17 S/P mitral valve repair Acute ~11/26/17 Aortic valve stenosis with insufficiency Chronic Longstanding persistent atrial fibrillation Chronic Mitral valve regurgitation Chronic
[2017-12-01] MEDS: HEPARIN 5,000 UNIT/0.5 ML SYR SC SCH (06:02)
[2017-12-01 07:04] LABS: INR 1.72 (0.83-1.16); PROTIME(PATIENT) 20.3 SEC (12.0-15.0)
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
[2017-12-01 08:05] VITALS: RESP 18; TEMP 98.2
[2017-12-01] MEDS: INSULIN REGULAR HUMAN 100 UNIT/ML UNIT SC SCH ×2 (08:39→10:56)
[2017-12-01] MEDS ORDERED: IRBESARTAN 75 MG TAB PO SCH (09:00)
[2017-12-01] MEDS ORDERED: AMIODARONE HCL 200 MG TAB PO SCH (09:00)
[2017-12-01] MEDS: metFORMIN HCL 500 MG TAB PO SCH (09:15)
[2017-12-01] MEDS: ASPIRIN 81 MG CHEWABLE TAB PO SCH (09:15)
[2017-12-01] MEDS: POTASSIUM CL 20 MEQ TAB PO SCH (09:15)
[2017-12-01] MEDS: PANTOPRAZOLE SODIUM 40 MG TAB PO SCH (09:15)
[2017-12-01] MEDS: FUROSEMIDE 40 MG TAB PO SCH (09:15)
[2017-12-01] MEDS: [UNRECOGNIZED DRUG - OTHER] PO PRN (09:15)
[2017-12-01] MEDS: guaiFENesin 600 MG TAB.ER PO SCH (09:15)
[2017-12-01 11:35] VITALS: BP 129/66; PULSE 69; O2SAT 90
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
[2017-12-01] MEDS ORDERED: WARFARIN SODIUM 5 MG TAB PO ONE (16:00)
--- NOTE | 2017-12-01 18:47 | HOSPPROG ---
Hospitalist Progress Note Assessment/Plan: # Type 2 diabetes - HBA1c 7.4 before any dietary/lifestyle modifications started metformin 500mg daily 11/28/17 - without any GI complaints BS improved 108-230 - 4 units SSI dispensed in last 24 hours oxygen saturations 97% on 2L TELE (personally reviewed and interpreted) sinus 60's - cont metformin 500mg daily and described uptitration below at dc - cont SSI while inpatient # proph - heparin # diet - diabetic # dispo - per CT surgery I discussed the case with CT surgery- patient can discharge without sliding scale insulin - metformin should be up titrated 500 mg per week to goal of 1 g twice daily Subjective: mild cough Objective: Vital Signs Temp Pulse Resp BP Pulse Ox 36.8 C 69 18 129/66 H 90 L 12/01/17 08:04 12/01/17 11:34 12/01/17 11:34 12/01/17 11:34 12/01/17 11:34 Laboratory Results 11/30/17 05:20 12/01/17 06:05 11/30/17 12/01/17 12/02/17 05:59 05:59 05:59 Intake Total 1375 1075 Output Total 2450 3350 Balance -1075 -2275 PT 20.3 SEC (12.0-15.0) H 12/01/17 06:05 INR 1.72 (0.83-1.16) H 12/01/17 06:05 - Physical Exam Constitutional: appears nourished Eyes: anicteric sclera Cardiovascular: regular rate and rhythym, systolic murmur Respiratory: no respiratory distress Gastrointestinal: normoactive bowel sounds Genitourinary: no bladder fullness Skin: warm Musculoskeletal: No asymmetric calves Neurologic: AAOx3 Lymph, Heme, Immunologic: no cervical LAD ICD10 Worksheet Patient Problems: Problems Problem Status Onset Acute blood loss anemia Acute S/P Maze operation for atrial fibrillation Acute ~11/26/17 S/P aortic valve replacement and aortoplasty Acute ~11/26/17 S/P mitral valve repair Acute ~11/26/17 Aortic valve stenosis with insufficiency Chronic Longstanding persistent atrial fibrillation Chronic Mitral valve regurgitation Chronic
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
== END 2017-12-01 15:03 | DRG 217 ==
LOC: FCATH 09:58 → F2W 14:01 → F2N 11-26 10:16 → F2W 11-28 17:00
PROVIDERS: ADMIT Thoracic Surgery (Cardiothoracic Vascular Surgery); ATTEND Thoracic Surgery (Cardiothoracic Vascular Surgery)
DX: I08.0 Rheumatic disorders of both mitral and aortic valves (principal); I42.0 Dilated cardiomyopathy; I48.1 Persistent atrial fibrillation; D62 Acute posthemorrhagic anemia; E11.9 Type 2 diabetes mellitus without complications; D69.59 Other secondary thrombocytopenia; I10 Essential (primary) hypertension; G47.30 Sleep apnea, unspecified; Z87.891 Personal history of nicotine dependence; Z79.84 Long term (current) use of oral hypoglycemic drugs
CPT/HCPCS: 82947-QW; 97116-GP; 97162-GP; 97165-GO; 97530-GO; 97535-GO; C1763; G8978-GP-CK; G8979-GP-CI; G8987-GO-CK; G8988-GO-CI; J0153; J0171; J0282; J0461; J0690; J1170; J1265; J1644; J1815; J1885; J2001; J2150; J2250; J2260; J2370; J2405; J2704; J2720; J2765; J2930; J3010; J7060; P9041; Q9967

== ENCOUNTER 2017-12-08 13:33 | Day surgery (SDC) | payer OTHER ==
[2017-12-08] MEDS ORDERED: ATROPINE SULFATE 1 MG/10 ML SYR IVP ONE (13:52)
[2017-12-08] MEDS ORDERED: fentaNYL 100 MCG/2 ML INJ IVP ONE (13:52)
[2017-12-08] MEDS ORDERED: NS 500 ML IV ONE (13:52)
[2017-12-08] MEDS ORDERED: MIDAZOLAM 2 MG/2 ML VIAL IVP ONE (13:52)
[2017-12-08] MEDS ORDERED: BENZOCAINE UNIT DOSE SPRAY HURRICAINE MM ONE (13:52)
[2017-12-08 14:51] LABS: INR 2.08 (0.83-1.16); PROTIME(PATIENT) 23.4 SEC (12.0-15.0)
--- NOTE | 2017-12-08 16:03 | PDANEPAE ---
ANE History of Present Illness A-fib s/p AVR, mitral valve ANE Past Medical History - Cardiovascular History Hx Hypertension: Yes Hx Arrhythmias: Yes Hx Chest Pain: No Hx Coronary Artery / Peripheral Vascular Disease: Yes Hx CHF / Valvular Disease: Yes Hx Palpitations: Yes Cardiovascular History Comment: tired,SOB - Pulmonary History Hx COPD: Yes Hx Asthma/Reactive Airway Disease: No Hx Recent Upper Respiratory Infection: No Hx Oxygen in Use at Home: No Hx Sleep Apnea: Yes - Neurologic History Hx Cerebrovascular Accident: No Hx Seizures: No Hx Dementia: No - Endocrine History Hx Diabetes: No - Renal History Hx Renal Disorders: No - Liver History Hx Hepatic Disorders: No - Neurological & Psychiatric Hx Hx Neurological and Psychiatric Disorders: No - Cancer History Hx Cancer: No - Congenital Disorder History Hx Congenital Disorders: Yes Congenital History Comment: high blood pressure - GI History Hx Gastrointestinal Disorders: Yes Gastrointestinal History Comment: takes fiber daily. has hemmaroids - Other Health History Other Health History: redened area to right ankle. cataract surgery both eyes - Chronic Pain History Chronic Pain: No - Surgical History Prior Surgeries: heart cath. cardioversion x3 ANE Review of Systems Review of Systems: ANE Patient History - Allergies Allergies/Adverse Reactions: No Known Allergies Allergy (Verified 11/02/17 12:14) - Home Medications Home Medications: Coumadin 4.5 mg PO DAILY 12/08/17 [Last Taken 12/07/17 16:00] - Anes Hx Anes Hx: no prior problems - Smoking Hx Smoking Status: Former smoker - Family Anes Hx Family Hx Anesthesia Complications: none ANE Labs/Vital Signs - Labs Result Diagrams: 12/08/17 14:20 - Vital Signs Height: 173 cm Weight: 93 kg ANE Physical Exam - Airway Neck exam: FROM Mallampati Score: Class 2 Mouth exam: dentures - Pulmonary Pulmonary: no respiratory distress - Cardiovascular Cardiovascular: irregularly irregular - ASA Status ASA Status: III ANE Anesthesia Plan Anesthesia Plan: MAC (With brief IV GA for CV)
[2017-12-08] MEDS ORDERED: LIDOCAINE 2% 5 ML SDV ONE (16:13)
[2017-12-08] MEDS ORDERED: PROPOFOL 200 MG/20 ML VIAL ONE (16:13)
--- NOTE | 2017-12-08 16:40 | CPEKG ---
Heart Rate: 77 RR Interval: 779 P-R Interval: 240 QRSD Interval: 122 QT Interval: 420 QTC Interval: 476 P [place]: 95 QRS [place]: 5 T Wave [place]: 80 EKG Severity - ABNORMAL ECG - EKG Impression: SINUS RHYTHM EKG Impression: FIRST DEGREE AV BLOCK EKG Impression: NS IVCD EKG Impression: COMPARED WITH 11/30/2017 NO SIGNIFICANT CHANGE Electronically Signed By: Padmini Harden 08-Dec-2017 18:16:23
--- NOTE | 2017-12-08 16:40 | POSTANESTH ---
Post Anesthetic Evaluation Cardiovascular Status: Similar to Pre-Op Cond Respiratory Status: Similar to Pre-op Cond. Level of Consciousness/Mental Status: Alert and Oriented Pain Control: Adequate, Prn Tx Ordered Nausea/Vomiting Control: Adequate, Prn Tx Ordered Complications Possibly Related to Anesthesia: None Noted
--- NOTE | 2017-12-09 01:40 | CPIP ---
[f rep st] INVASIVE CARDIAC PROCEDURE DATE OF PROCEDURE: 12/08/2017 PROCEDURE: Transesophageal echocardiography-guided cardioversion INDICATIONS: Atrial arrhythmia status post AVR and mitral valve repair. COMPLICATIONS: None. DESCRIPTION OF PROCEDURE: Informed consent was obtained, n.p.o. status was confirmed, time-out was p erformed. Sedation was provided by Dr. Gonzalez of the anesthesia service. DAVID probe was passed without difficulty and images obtained. Please see separate report. In summary, LV ejection fracti on was 25% with global hypokinesis. Robust mitral valve repair with normal function. Normal appeara nce of the aortic valve bioprosthesis without stenosis or regurgitation. Left atrial appendage has b een ligated. There is no intracardiac thrombus. We elected to proceed with cardioversion. The patient received a single 200-joule shock which conver nicole him from what appeared to be atrial flutter to normal sinus rhythm. 12-lead EKG is pending. CONCLUSIONS: Successful DAVID-guided cardioversion. Continue amiodarone and warfarin. The patient wi ll be discharged back to his rehab facility and follow up with Dr. Rendon and Dr. Whitney. /[id number]/MODL
--- NOTE | 2017-12-09 16:25 | ECHO ---
[email or web address] [address] [address] Main: [phone] Fax: Transesophageal Echocardiography Name: ASHLEE LYNN MR#: [id number] Study Date: 12/08/2017 Study Time: 03:45 PM Date of : 1950 Age: 67 year(s) Height: ( ) Weight: ( ) BSA: Gender: Male Examination: DAVID Indication: Atrial Fibrillation Image Quality: Contrast: Requested by: Padmini Harden Heart Rate: Rhythm: BP: 97 mmHg/65 mmHg Procedure Staff Front Office Java Developer: Shruti Abarca Physician: Padmini Harden Requesting Provider: Enmanuel Whitney DAVID Exam Details Patient Consent: Risks, alternatives of procedure explained to patient, informed consent obtained. Patient Fasting: yes Conclusions: The ejection fraction is estimated to be 20-25 %. No LA thrombus. DREW has been ligated.. There is no mitral valve regurgitation. An annuloplasty ring is noted in the mitral valve position. There is no aortic valve regurgitation. The aortic valve is a bioprosthesis. Proceed with cardioversion Measurements: Chambers Valvular Assessment AV/MV Valvular Assessment TV/PV Normal Normal Normal Name Value Range Name Value Range Name Value Range EF Range: 20-25 % Additional Measurements: Findings: The ejection fraction is estimated to be 20-25 %. Left Atrium: Patient: ASHLEE LYNN Study Date: 12/08/2017 Page 1 of 2 03:45 PM No LA thrombus. Left Atrial Appendage: DREW has been ligated.. Mitral Valve: There is no mitral valve regurgitation. An annuloplasty ring is noted in the mitral valve position. Aortic Valve: There is no aortic valve regurgitation. The aortic valve is a bioprosthesis. Tricuspid Valve: The tricuspid valve is normal in appearance and function. l1n (No Signature Object) Patient: ASHLEE LYNN Study Date: 12/08/2017 Page 2 of 2 03:45 PM [id number]
== END 2017-12-08 18:09 | disposition home or self-care (01) ==
LOC: FCATH 13:33
PROVIDERS: ATTEND Internal Medicine Cardiovascular Disease
PROC: B245ZZ4 Ultrasonography of Left Heart, Transesophageal (ICD-10-PCS; principal; 2017-12-08)
PROC: 5A2204Z Restoration of Cardiac Rhythm, Single (ICD-10-PCS; principal; 2017-12-08)
DX: I47.1 Supraventricular tachycardia (principal); I08.0 Rheumatic disorders of both mitral and aortic valves; I10 Essential (primary) hypertension; I25.10 Atherosclerotic heart disease of native coronary artery without angina pectoris; J44.9 Chronic obstructive pulmonary disease, unspecified; G47.30 Sleep apnea, unspecified; Z79.01 Long term (current) use of anticoagulants; Z87.891 Personal history of nicotine dependence; Z95.2 Presence of prosthetic heart valve
CPT/HCPCS: J0461; J2704

== ENCOUNTER → 2017-12-08 | Outpatient (CLI) | payer OTHER | LOC: FIMAGING 10:37 | PROVIDERS: ATTEND Thoracic Surgery (Cardiothoracic Vascular Surgery) | DX: Z86.79 Personal history of other diseases of the circulatory system (principal); Z95.2 Presence of prosthetic heart valve; Z98.890 Other specified postprocedural states ==